=== PATIENT | male | born 1995 | race Caucasian/White ===

== ENCOUNTER 2020-08-25 16:45 | Emergency (ER) | payer BC | END 2020-08-25 17:02 | disposition home or self-care (01) | LOC: JVIRT 16:45 | DX: Z11.52 Encounter for screening for COVID-19 (principal) | CPT/HCPCS: C9803; G2012-GT; U0003 ==

== ENCOUNTER 2022-08-05 14:00 | Emergency (ER) | payer BC ==
[2022-08-05] MEDS ORDERED: CLINDAMYCIN 600MG PREMIX IVPB 600 MG/50 ML BAG IVPB ONE ×2 (14:07→14:19)
[2022-08-05] MEDS ORDERED: DEXAMETHASONE SOD PHOSPHATE 10 MG/1 ML VIAL IVPUSH ONE (14:07)
[2022-08-05] MEDS ORDERED: DEXAMETHASONE SOD PHOSPHATE 10 MG/1 ML VIAL ONE (14:19)
[2022-08-05 14:24] VITALS: BP 108/73; PULSE 74; RESP 20; TEMP 99.1; BMI 20.7
[2022-08-05 15:34] LABS: HEMATOCRIT 39.1 % (35.4-49); MCH 30.6 pg (25.7-33.7); MCHC 35.9 g/dl (32.0-35.9); MEAN CELL VOLUME 85.1 fl (80-96); MEAN PLT VOLUME 8.6 fl (7.5-11.1); PLATELET COUNT 215.8 10^3/uL (134-434); RBC 4.59 10^6/uL (4.00-5.60); RDW 13.7 % (11.9-15.9); WHITE BLOOD COUNT 6.4 10^3/uL (4.0-10.8)
[2022-08-05 15:38] LABS: PLATELET ESTIMATE ADEQUATE
[2022-08-05 18:43] LABS: ALBUMIN 3.7 g/dl (3.4-5.0)
[2022-08-05 18:44] LABS: CALCIUM 8.7 mg/dL (8.5-10.1)
[2022-08-05 18:45] LABS: BLOOD UREA NITROGEN 14.9 mg/dL (7-18)
[2022-08-05 18:48] LABS: CREATININE 1.2 mg/dL (0.55-1.3)
[2022-08-05 18:49] LABS: BILIRUBIN,TOTAL 0.4 mg/dL (0.2-1)
[2022-08-05 18:57] LABS: THROAT:GRP A STREP NOT DETECTED (NOTDETECTED)
== END 2022-08-05 16:46 | disposition home or self-care (01) ==
LOC: FER 14:00
PROC: 3E033GC Introduction of Other Therapeutic Substance into Peripheral Vein, Percutaneous Approach (ICD-10-PCS; principal; 2022-08-05)
DX: J03.90 Acute tonsillitis, unspecified (principal)
CPT/HCPCS: 0241U-QW; 36415; 70491-TC; 80053; 85027; 87651; 99285-25; J1100